=== PATIENT | female | born 1950 | race Caucasian/White ===

== ENCOUNTER → 2018-05-17 | Day surgery (SDC) | payer MEDICARE, BC ==
[~2018-05-17] MED LIST: Brimonidine 0.2% Ophth Soln 5 ML Bottle EYERT SCH; Phenylephrine 2.5% Ophth Soln 2 ML Bot EYERT SCH; Tropicamide 1% Ophth Soln 15 ML Bottle EYERT SCH
== END ==
LOC: JD.SDS 08:44
PROVIDERS: ATTEND Ophthalmology
DX: H26.491 Other secondary cataract, right eye (principal)